=== PATIENT | female | born 1985 ===

== ENCOUNTER 2022-02-02 19:31 | Emergency (ER) | payer MEDICAID, SELFPAY ==
[2022-02-02 19:40] VITALS: BP 105/73; PULSE 79; RESP 16; TEMP 36.1; O2SAT 97; BMI 33.8
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
[2022-02-02 23:23] VITALS: BP 135/79; PULSE 89; RESP 16; TEMP 36.1
== END 2022-02-02 23:24 | disposition home or self-care (01) ==
LOC: ED 23:08
PROVIDERS: Emergency Provider Family Medicine; PCP Family Medicine
DX: F43.8 Other reactions to severe stress (principal); F32.A Depression, unspecified
CPT/HCPCS: 99283